=== PATIENT | female | born 1950 | race Caucasian/White ===

== ENCOUNTER 2017-05-26 20:47 | Emergency (ER) | payer OTHER, BC ==
[~2017-05-26] VITALS: Ht 162.6 cm; Wt 62.6 kg
[2017-05-26 20:59] VITALS: BP 139/84
[2017-05-26] MEDS ORDERED: MOTRIN600 MG PO (22:58)
== END 2017-05-26 23:21 | disposition home or self-care (01) ==
LOC: EME 20:47
PROC: 2W3KX1Z Immobilization of Left Finger using Splint (ICD-10-PCS; principal; 2017-05-26)
DX: S62.615A Displaced fracture of proximal phalanx of left ring finger, initial encounter for closed fracture (principal); W23.0XXA Caught, crushed, jammed, or pinched between moving objects, initial encounter; Z88.0 Allergy status to penicillin
CPT/HCPCS: 73140; 99281; 99283

== ENCOUNTER → 2017-05-28 | Outpatient (CLI) | payer MEDICARE, BC ==
[~2017-05-28] MED LIST: MOTRIN600 MG PO
== END | disposition home or self-care (01) ==
LOC: CDC 12:44
DX: Z01.810 Encounter for preprocedural cardiovascular examination (principal); S62.615A Displaced fracture of proximal phalanx of left ring finger, initial encounter for closed fracture
CPT/HCPCS: 93000